=== PATIENT | male | born 2000 | race African-American/Black ===

== ENCOUNTER 2020-03-20 18:58 | Emergency (ER) | payer OTHER, SELFPAY ==
[2020-03-20] MEDS ORDERED: LIDOCAINE 1% W/EPI 1:100,000 MDV 50 ML VIAL ONE (23:11)
[2020-03-20] MEDS ORDERED: BUPIVACAINE 0.5% PF 10 ML VIAL ONE (23:11)
--- NOTE | 2020-03-21 | EDPHYS ---
Physician Documentation [facility] Name: Roel Flores Jr Age: 19 yrs Sex: Male : 2000 Arrival Date: 03/20/2020 Time: 19:00 Bed 26 Private MD: ED Physician Devante Singh HPI: 03/20 23:00 This 19 yrs old Black Male presents to ER via Ambulatory with complaints of Abscess. cp 23:00 The patient presents with an abscess of the right lower back. Description: cp erythematous, swollen, warm. Onset: The symptoms/episode began/occurred 1 week(s) ago. 23:00 Possible cause(s): unknown. cp 23:00 Associated signs and symptoms: Pertinent negatives: fever. cp Historical: - Allergies: 19:15 No Known Allergies; ss - Home Meds: 19:15 None [Active]; ss - PMHx: 19:15 None; ss - PSHx: 19:15 None; ss - Immunization history:: Adult Immunizations up to date. - Social history:: Smoking status: Patient denies any tobacco usage or history of. ROS: 23:05 Skin: Positive for abscess, cellulitis, of the right lower back. cp 23:05 Constitutional: Negative for body aches, chills, fever. cp 23:05 Cardiovascular: Negative for chest pain. 23:05 Respiratory: Negative for cough, shortness of breath, wheezing. 23:05 Abdomen/GI: Negative for abdominal pain, nausea, vomiting, and diarrhea. 23:05 All other systems are negative. Exam: 23:12 Constitutional: The patient appears in no acute distress, alert, awake, non-toxic, well cp developed, well nourished. 23:12 Head/Face: Normocephalic, atraumatic. cp 23:12 Chest/axilla: Inspection: normal. 23:12 Cardiovascular: Rate: normal. 23:12 Respiratory: the patient does not display signs of respiratory distress, Respirations: normal. 23:12 Abdomen/GI: Inspection: abdomen appears normal, Palpation: abdomen is soft and non-tender, in all quadrants. 23:12 Skin: abscess, that is moderate sized, of the right lower back, with induration, with surrounding cellulitis, that is mild. Vital Signs: 19:13 BP 127 / 77; Pulse 78; Resp 18; Temp 97.8; Pulse Ox 100% on R/A; Weight 106.59 kg; ss Height 6 ft. 0 in. (182.88 cm); Pain 6/10; 19:13 Body Mass Index 31.87 (106.59 kg, 182.88 cm) Procedures: 23:54 I \T\ D: Incision and drainage was performed for an abscess of the right lower back cp Prepped with Betadine, Anesthetized with 8 ccs of 50/50 solution 1% lidocaine with epi and 0.5% marcaine. Incised with #11 blade. Drained small amount purulent fluid. bloody fluid. Packed with iodoform gauze, Dressing: sterile 4x4 gauze, the patient tolerated the procedure well. MDM: 22:48 Patient medically screened. mook 23:00 Differential diagnosis: abscess, cellulitis, insect bite. cp 23:58 Data reviewed: vital signs, nurses notes, and as a result, I will discharge patient. 23:58 Counseling: I had a detailed discussion with the patient and/or guardian regarding: the cp historical points, exam findings, and any diagnostic results supporting the discharge/admit diagnosis, the need for outpatient follow up, a general surgeon, to return to the emergency department if symptoms worsen or persist or if there are any questions or concerns that arise at home. Response to treatment: the patient's symptoms have markedly improved after treatment, and as a result, I will discharge patient, administer antibiotics oral Doxycycline and Bactrim. 03/20 22:57 Order name: I\T\D Setup; Complete Time: 00:37 cp Administered Medications: 23:15 Drug: Lidocaine-Epinephrine -1%: (1:100,000) 10 ml Volume: 20 ml; Route: Infiltration; sg 23:15 Drug: Marcaine (0.5 %) 10 ml {Note: medication administered by Clotilde Sanders} Volume: 10 sg ml; Route: Infiltration; 03/21 00:47 Drug: Doxycycline 200 mg Route: PO; sg 00:47 Drug: Bactrim (160 mg-800 mg (DS) 2 tablet Route: PO; sg Disposition: 00:15 Chart complete. cp 06:04 Co-signature as Attending Physician, Devante Singh MD I agree with the assessment and [facility] plan of care. Disposition: 03/20/20 23:59 Discharged to Home. Impression: Cutaneous abscess of back [any part, except buttock] - right lower, Cellulitis of back [any part except buttock] - right lower. - Condition is Stable. - Discharge Instructions: Skin Abscess, Cellulitis, Adult, Incision and Drainage. - Prescriptions for Doxycycline Hyclate 100 mg Oral Tablet - take 1 tablet by ORAL route every 12 hours; 20 tablet. Bactrim DS 800- 160 mg Oral Tablet - take 1 tablet by ORAL route every 12 hours for 10 days; 20 tablet. Tramadol 50 mg Oral Tablet - take 1 tablet by ORAL route every 8 hours as needed; 12 tablet. - Medication Reconciliation Form, Thank You Letter, Antibiotic Education, Prescription Opioid Use form. - Work release form (03/21/20 00:59). sg - Follow up: Jadon Iqbal MD; When: 1 - 2 days; Reason: Wound Recheck. - Problem is new. - Symptoms have improved. Signatures: Derik Olvera RN RN sg Anderson, Corey, MD MD cha Smirch, Shelby, RN RN Devante Hitchcock PA PA cp Corrections: (The following items were deleted from the chart) 00:48 03/20 23:59 03/20/2020 23:59 Discharged to Home. Impression: Cutaneous abscess of back sg [any part, except buttock] - right lower; Cellulitis of back [any part except buttock] - right lower. Condition is Stable. Forms are Medication Reconciliation Form, Thank You Letter, Antibiotic Education, Prescription Opioid Use. Follow up: Jadon Iqbal; When: 1 - 2 days; Reason: Wound Recheck. Problem is new. Symptoms have improved. cp
--- NOTE | 2020-03-21 | ER ---
Nurse's Notes [facility] Name: Roel Flores Jr Age: 19 yrs Sex: Male : 2000 Arrival Date: 03/20/2020 Time: 19:00 Bed 26 Private MD: Diagnosis: Cutaneous abscess of back [any part, except buttock]-right lower;Cellulitis of back [any part except buttock]-right lower Presentation: 03/20 19:13 Coronavirus screen: Proceed with normal triage. Ebola Screen: Patient negative for ss fever greater than or equal to 101.5 degrees Fahrenheit, and additional compatible Ebola Virus Disease symptoms Patient denies exposure to infectious person. Patient denies travel to an Ebola-affected area in the 21 days before illness onset. No symptoms or risks identified at this time. Initial Sepsis Screen: Does the patient meet any 2 criteria? No. Patient's initial sepsis screen is negative. Does the patient have a suspected source of infection? No. Patient's initial sepsis screen is negative. Risk Assessment: Do you want to hurt yourself or someone else? Patient reports no desire to harm self or others. Onset of symptoms was March 20, 2020. Care prior to arrival: None. Transition of care: patient was not received from another setting of care. 19:13 Acuity: KELSEY 4 19:13 Method Of Arrival: Ambulatory 19:13 Chief complaint: Patient states: I have a spot on my right side lower back, my mom sg thinks its an abscess, no drainage reported. Historical: - Allergies: 19:15 No Known Allergies; - Home Meds: 19:15 None [Active]; ss - PMHx: 19:15 None; ss - PSHx: 19:15 None; ss - Immunization history:: Adult Immunizations up to date. - Social history:: Smoking status: Patient denies any tobacco usage or history of. Vital Signs: 19:13 BP 127 / 77; Pulse 78; Resp 18; Temp 97.8; Pulse Ox 100% on R/A; Weight 106.59 kg; ss Height 6 ft. 0 in. (182.88 cm); Pain 6/10; 19:13 Body Mass Index 31.87 (106.59 kg, 182.88 cm) ED Course: 19:00 Patient arrived in ED. ag5 19:15 Triage completed. ss 19:15 Arm band placed on. ss 22:41 Devante Hitchcock PA is PHCP. cp 22:41 Devante Singh MD is Attending Physician. cp 22:41 Derik Olvera, RN is Primary Nurse. sg 23:57 Jadon Iqbal MD is Referral Physician. cp Administered Medications: 23:15 Drug: Lidocaine-Epinephrine -1%: (1:100,000) 10 ml Volume: 20 ml; Route: Infiltration; sg 23:15 Drug: Marcaine (0.5 %) 10 ml {Note: medication administered by Clotilde JARA .} Volume: 10 sg ml; Route: Infiltration; 03/21 00:47 Drug: Doxycycline 200 mg Route: PO; sg 00:47 Drug: Bactrim (160 mg-800 mg (DS) 2 tablet Route: PO; sg Outcome: 03/20 23:59 Discharge ordered by . cp 03/21 00:48 Patient left the ED. sg Signatures: Derik Olvera RN RN sg Smirch, Shelby, RN RN Devante Hitchcock PA [facility] Arian Obrien ag5
[2020-03-21] MEDS ORDERED: DOXYCYCLINE 100 MG CAP PO ONE (00:51)
[2020-03-21] MEDS ORDERED: SMZ./TMP. 800/160 MG TABLET ONE (00:51)
[2020-03-21 01:10] VITALS: BP 127/77; TEMP 97.8; O2SAT 100
== END 2020-03-21 00:48 | disposition home or self-care (01) ==
LOC: ER 18:58
PROC: 0J970ZZ Drainage of Back Subcutaneous Tissue and Fascia, Open Approach (ICD-10-PCS; principal; 2020-03-21)
DX: L02.212 Cutaneous abscess of back [any part, except buttock and flank] (principal); L03.312 Cellulitis of back [any part except buttock and flank]
CPT/HCPCS: 99282

== ENCOUNTER 2021-02-06 22:18 | Emergency (ER) | payer SELFPAY ==
[2021-02-06 23:04] LABS: Absolute Lymphocytes (CBC) 1.7 K/uL (0.7-4.9); Basophils % 0.3 % (0-1.3); Hematocrit 43.9 % (39.6-49.0); Lymphocytes % 29.9 % (15.3-44.8); MPV 10.5 fL (7.6-11.3); RBC Red Blood Cell Count 5.04 M/uL (4.33-5.43)
[2021-02-06 23:17] LABS: BUN Blood Urea Nitrogen 13 mg/dL (7-18); Bicarbonate 31 mmol/L (21-32); Glucose Level 90 mg/dL (74-106); Sodium Level 142 mmol/L (136-145)
--- NOTE | 2021-02-07 00:05 | EDPHYS ---
Physician Documentation [facility] Name: Roel Flores Jr Age: 20 yrs Sex: Male : 2000 Arrival Date: 02/06/2021 Time: 22:28 Bed 14 Private MD: ED Physician Haider Padilla HPI: 02/06 22:56 This 20 yrs old Black Male presents to ER via Ambulatory with complaints of Abdominal kb Pain, Fever, Vomiting/Diarrhea. 22:56 The patient presents with abdominal pain in the left lower quadrant. Onset: The kb symptoms/episode began/occurred yesterday. The symptoms do not radiate. Associated signs and symptoms: Pertinent positives: nausea, vomiting, and diarrhea, fever. The symptoms are described as constant. Modifying factors: The symptoms are alleviated by nothing, the symptoms are aggravated by nothing. Severity of pain: At its worst the pain was moderate in the emergency department the pain is unchanged. The patient has not experienced similar symptoms in the past. The patient has not recently seen a physician. Pt reports lower abd pain that started yesterday with n/v/d and fever up to 102. Historical: - Allergies: 22:39 No Known Allergies; bb - Home Meds: 22:39 None [Active]; bb - PMHx: 22:39 None; bb - PSHx: 22:39 None; bb - Immunization history:: Adult Immunizations up to date. - Social history:: Smoking status: Patient reports the use of cigarette tobacco products, denies chronic smoking, but will smoke occasionally, Patient/guardian denies using alcohol, street drugs. ROS: 22:56 Respiratory: Negative for shortness of breath, cough, wheezing, and pleuritic chest kb pain. 22:56 Constitutional: Positive for fever. 22:56 Abdomen/GI: Positive for abdominal pain, nausea, vomiting, and diarrhea. 22:56 All other systems are negative. Exam: 22:56 Constitutional: This is a well developed, well nourished patient who is awake, alert, kb and in no acute distress. Head/Face: Normocephalic, atraumatic. ENT: Moist Mucous membranes Respiratory: Respirations even and unlabored. No increased work of breathing, no retractions or nasal flaring. Skin: Warm, dry with normal turgor. Normal color. MS/ Extremity: Pulses equal, no cyanosis. Neurovascular intact. Full, normal range of motion. Neuro: Awake and alert, GCS 15, oriented to person, place, time, and situation. Moves all extremities. Normal gait. Psych: Awake, alert, with orientation to person, place and time. Behavior, mood, and affect are within normal limits. 22:56 Abdomen/GI: Inspection: abdomen appears normal, Palpation: soft, in all quadrants, mild abdominal tenderness, in the left lower quadrant. Vital Signs: 22:35 BP 147 / 81; Pulse 81; Resp 16 S; Temp 98.6(O); Pulse Ox 99% on R/A; Weight 113.4 kg bb (R); Height 6 ft. 3 in. (190.50 cm) (R); Pain 6/10; 02/07 00:00 BP 144 / 74; Pulse 68; Resp 18; Pulse Ox 98% ; wh 01:00 BP 136 / 74; Pulse 70; Resp 18; Pulse Ox 99% on R/A; 02/06 22:35 Body Mass Index 31.25 (113.40 kg, 190.50 cm) bb MDM: 02/06 22:32 Patient medically screened. kb 22:55 Data reviewed: vital signs, nurses notes. Data interpreted: Pulse oximetry: on room air kb is 99 %. Interpretation: normal. 23:54 Counseling: I had a detailed discussion with the patient and/or guardian regarding: the kb historical points, exam findings, and any diagnostic results supporting the discharge/admit diagnosis, lab results, radiology results, the need for outpatient follow up, a family practitioner, to return to the emergency department if symptoms worsen or persist or if there are any questions or concerns that arise at home. 02/06 22:37 Order name: Basic Metabolic Panel; Complete Time: 23:22 kb 02/06 22:37 Order name: CBC with Diff; Complete Time: 23:10 kb 02/06 22:37 Order name: CT Abd/Pelvis - IV Contrast Only 02/06 22:37 Order name: IV Saline Lock; Complete Time: 22:52 kb 02/06 22:37 Order name: Labs collected and sent; Complete Time: 22:52 kb Administered Medications: 02/07 00:20 Drug: NS 0.9% 1000 ml Route: IV; Rate: 1000 ml; Site: right antecubital; 01:24 Follow up: Response: No adverse reaction; IV Status: Completed infusion 00:20 Drug: Zofran (Ondansetron) 4 mg Route: IVP; Site: right antecubital; 01:24 Follow up: Response: No adverse reaction; Nausea is decreased 00:20 Drug: Bentyl (dicyclomine) 20 mg Route: PO; 01:23 Follow up: Response: No adverse reaction; Pain is decreased Disposition: 07:40 Co-signature as Attending Physician, Haider Padilla MD. [email or web address] Disposition: 02/07/21 00:04 Discharged to Home. Impression: Nausea and vomiting, Diarrhea, unspecified, Lower abdominal pain, unspecified. - Condition is Stable. - Discharge Instructions: Food Choices to Help Relieve Diarrhea, Adult, Viral Gastroenteritis, Adult, [id number]. - Prescriptions for Bentyl 20 mg Oral Tablet - take 1 tablet by ORAL route every 6 hours As needed; 20 tablet. Zofran 4 mg Oral Tablet - take 1 tablet by ORAL route every 6 hours As needed; 20 tablet. - Medication Reconciliation Form, Thank You Letter, Antibiotic Education, Prescription Opioid Use form. - Follow up: Emergency Department; When: As needed; Reason: Worsening of condition. Follow up: Private Physician; When: 2 - 3 days; Reason: Recheck today's complaints, Continuance of care, Re-evaluation by your physician. Signatures: Dispatcher [employer] EDOR Lucia Juarez, DIANN FUNG-Eugenia Scott RN RN bb Habalo, Winsy, RN RN wh Holmes, Maurice, MD MD [email or web address] Corrections: (The following items were deleted from the chart) 01: 00:04 02/07/2021 00:04 Discharged to Home. Impression: Nausea and vomiting; Diarrhea, wh unspecified; Lower abdominal pain, unspecified. Condition is Stable. Forms are Medication Reconciliation Form, Thank You Letter, Antibiotic Education, Prescription Opioid Use. Follow up: Emergency Department; When: As needed; Reason: Worsening of condition. Follow up: Private Physician; When: 2 - 3 days; Reason: Recheck today's complaints, Continuance of care, Re-evaluation by your physician. kb
--- NOTE | 2021-02-07 00:05 | ER ---
Nurse's Notes [facility] Name: Roel Flores Jr Age: 20 yrs Sex: Male : 2000 Arrival Date: 02/06/2021 Time: 22:28 Bed 14 Private MD: Diagnosis: Nausea and vomiting;Diarrhea, unspecified;Lower abdominal pain, unspecified Presentation: 02/06 22:35 Chief complaint: Patient states: he is having sharp lower abdominal pain no radiation bb the pain is intermittent and started yesterday he also vomited x 2 yesterday, and has been having diarrhea off and on for the last couple of days with fever. Coronavirus screen: diarrhea, fever, vomiting. Ebola Screen: No symptoms or risks identified at this time. Initial Sepsis Screen: Does the patient meet any 2 criteria? No. Patient's initial sepsis screen is negative. Does the patient have a suspected source of infection? No. Patient's initial sepsis screen is negative. Risk Assessment: Do you want to hurt yourself or someone else? Patient reports no desire to harm self or others. Onset of symptoms was February 04, 2021. 22:35 Method Of Arrival: Ambulatory bb 22:35 Acuity: KELSEY 3 bb Historical: - Allergies: 22:39 No Known Allergies; bb - Home Meds: 22:39 None [Active]; bb - PMHx: 22:39 None; bb - PSHx: 22:39 None; bb - Immunization history:: Adult Immunizations up to date. - Social history:: Smoking status: Patient reports the use of cigarette tobacco products, denies chronic smoking, but will smoke occasionally, Patient/guardian denies using alcohol, street drugs. Screenin:00 Abuse screen: Denies threats or abuse. Denies injuries from another. Nutritional wh screening: No deficits noted. Tuberculosis screening: No symptoms or risk factors identified. Fall Risk None identified. Assessment: 23:45 General: Appears in no apparent distress. Behavior is calm, cooperative, appropriate wh for age. Pain: Complains of pain in abdomen Quality of pain is described as crampy. Neuro: Level of Consciousness is awake, alert, obeys commands, Oriented to person, place, time, situation, Appropriate for age. Cardiovascular: Heart tones S1 S2. Respiratory: Airway is patent Respiratory effort is even, unlabored, Respiratory pattern is regular, symmetrical, Breath sounds are clear bilaterally. GI: Bowel sounds present X 4 quads. Abd is soft and non tender X 4 quads. Reports lower abdominal pain, upper abdominal pain, nausea. : No signs and/or symptoms were reported regarding the genitourinary system. EENT: No signs and/or symptoms were reported regarding the EENT system. Derm: Skin is intact, is healthy with good turgor, Skin is pink, warm \T\ dry. normal. Musculoskeletal: Circulation, motion, and sensation intact. 02/07 00:33 Reassessment: Patient appears in no apparent distress at this time. No changes from previously documented assessment. Patient and/or family updated on plan of care and expected duration. Pain level reassessed. Patient is alert, oriented x 3, equal unlabored respirations, skin warm/dry/pink. 01:00 Reassessment: Patient appears in no apparent distress at this time. Patient and/or family updated on plan of care and expected duration. Pain level reassessed. Patient is alert, oriented x 3, equal unlabored respirations, skin warm/dry/pink. Pt with DC order awaiting for IVF to be consumed. Vital Signs: 02/06 22:35 BP 147 / 81; Pulse 81; Resp 16 S; Temp 98.6(O); Pulse Ox 99% on R/A; Weight 113.4 kg bb (R); Height 6 ft. 3 in. (190.50 cm) (R); Pain 6/10; 02/07 00:00 BP 144 / 74; Pulse 68; Resp 18; Pulse Ox 98% ; 01:00 BP 136 / 74; Pulse 70; Resp 18; Pulse Ox 99% on R/A; 02/06 22:35 Body Mass Index 31.25 (113.40 kg, 190.50 cm) ED Course: 02/06 22:28 Patient arrived in ED. cf2 22:31 Jesenia Corrales RN is Primary Nurse. wh 22:32 Lucia Juarez FNP-C is PHCP. kb 22:32 Haider Padilla MD is Attending Physician. kb 22:39 Triage completed. bb 22:39 Arm band placed on Patient placed in an exam room, on a stretcher, on pulse oximetry. bb 23:00 Patient has correct armband on for positive identification. Bed in low position. Call light in reach. Side rails up X 1. Pulse ox on. NIBP on. 23:00 Inserted saline lock: 20 gauge in right antecubital area, using aseptic technique. Blood collected. 23:07 CT Abd/Pelvis - IV Contrast Only In Process Unspecified. EDCA 02/07 01:23 No provider procedures requiring assistance completed. IV discontinued, intact, bleeding controlled, No redness/swelling at site. Administered Medications: 00:20 Drug: NS 0.9% 1000 ml Route: IV; Rate: 1000 ml; Site: right antecubital; 01:24 Follow up: Response: No adverse reaction; IV Status: Completed infusion 00:20 Drug: Zofran (Ondansetron) 4 mg Route: IVP; Site: right antecubital; 01:24 Follow up: Response: No adverse reaction; Nausea is decreased 00:20 Drug: Bentyl (dicyclomine) 20 mg Route: PO; 01:23 Follow up: Response: No adverse reaction; Pain is decreased Outcome: 00:04 Discharge ordered by . kb 01:23 Discharged to home ambulatory. 01:23 Condition: stable 01:23 Discharge instructions given to patient, Instructed on discharge instructions, follow up and referral plans. medication usage, POC Demonstrated understanding of instructions, follow-up care, medications, POC Prescriptions given X 2. 01:24 Patient left the ED. Signatures: Dispatcher [employer] EDCA Lucia Juarez, DIANN FUNG-Eugenia Scott RN RN bb Habalo, Winsy, RN RN Kemi Escudero cf2
[2021-02-07] MEDS ORDERED: NA CHLORIDE 0.9% 1,000 ML ONE (00:32)
[2021-02-07] MEDS ORDERED: ONDANSETRON 4 MG/2 ML VIAL ONE (00:32)
[2021-02-07] MEDS ORDERED: DICYCLOMINE HCL 10 MG CAP ONE (00:32)
[2021-02-07 01:31] VITALS: TEMP 98.6
[2021-02-07 01:35] VITALS: BP 136/74; O2SAT 99
--- NOTE | 2021-02-07 18:41 | RAD REPORT ---
EXAM DESCRIPTION: ABD PAIN COMPARISON: None. TECHNIQUE: CT ABDOMEN PELVIS WITH IV CONTRAST on 02/06/2021 10:37 PM CDT This exam was performed according to our departmental dose-optimization program, which includes autom ated exposure control, adjustment of the mA and/or kV according to patient size and/or use of iterati ve reconstruction technique. FINDINGS: Lower lungs are clear. Abdomen: The liver is normal in appearance. There is no biliary dilatation. Gallbladder is normal in appearance. Stomach is distended with food material. The pancreas and spleen are normal in appearance . The adrenal glands and kidneys are unremarkable. Abdominal aorta is normal in course and caliber without aneurysm. There is no free air. There is no r etroperitoneal adenopathy. Pelvis: There is no bowel obstruction. Urinary bladder is unremarkable. There is no free fluid. Appen diya is normal. Skeleton: There are no acute osseous findings. No suspicious bony lesions. IMPRESSION: No acute process. Electronically signed by: Dario Hernandez MD 02/06/2021 11:34 PM CDT Due to temporary technical issues with the PACS/Fluency reporting system, reports are being signed by the in house radiologists without review as a courtesy to insure prompt reporting. The interpreting radiologist is fully responsible for the content of the report.
== END 2021-02-07 01:24 | disposition home or self-care (01) ==
LOC: ER 22:18
DX: R11.2 Nausea with vomiting, unspecified (principal); R19.7 Diarrhea, unspecified; F17.210 Nicotine dependence, cigarettes, uncomplicated
CPT/HCPCS: 36415; 74177; 80048; 82565; 85025; 96361; 96374; 99284; J2405; J7030; Q9967

== ENCOUNTER 2021-12-23 09:58 | Emergency (ER) | payer BC, SELFPAY ==
--- NOTE | 2021-12-23 11:16 | RAD REPORT ---
EXAM DESCRIPTION: RAD - Hand Left 3 View - 12/23/2021 11:07 am CLINICAL HISTORY: LEFT thumb pain COMPARISON: No comparisons FINDINGS/IMPRESSION: No acute fracture. No malalignment. No significant focal degenerative changes.
[2021-12-23] MEDS ORDERED: KETOROLAC 30 MG/ML INJ ONE (11:46)
--- NOTE | 2021-12-23 12:20 | ER ---
Nurse's Notes [facility] Name: Roel Flores Jr Age: 21 yrs Sex: Male : 2000 Arrival Date: 12/23/2021 Time: 10:02 Bed 12 Private MD: Diagnosis: Strain of muscle and tendon of back wall of thorax;Other sprain of left thumb Presentation: 12/23 10:33 Chief complaint: Patient states: he was lifting a dresser when he felt like he pulled a ap3 muscle in his back, then dropped the dresser on his left thumb. Patient presents to the ED today with mid back pain and left thumb pain. Coronavirus screen: At this time, the client does not indicate any symptoms associated with coronavirus-19. Ebola Screen: No symptoms or risks identified at this time. Initial Sepsis Screen: Does the patient meet any 2 criteria? No. Patient's initial sepsis screen is negative. Does the patient have a suspected source of infection? No. Patient's initial sepsis screen is negative. Risk Assessment: Do you want to hurt yourself or someone else? Patient reports no desire to harm self or others. Onset of symptoms was December 23, 2021. 10:33 Method Of Arrival: Ambulatory ap3 10:33 Acuity: KELSEY 4 ap3 Triage Assessment: 10:35 General: Appears in no apparent distress. Behavior is calm, cooperative, appropriate ap3 for age. Pain: Complains of pain in mid back and left thumb Pain does not radiate. Pain currently is 5 out of 10 on a pain scale. Pain began suddenly, Is continuous. Neuro: Level of Consciousness is awake, alert, obeys commands, Oriented to person, place, time, situation, Appropriate for age Gait is steady, Speech is normal. Cardiovascular: Patient's skin is warm and dry. Respiratory: Airway is patent Respiratory effort is even, unlabored. Musculoskeletal: Reports pain in mid back area. Injury Description: dresser fell on thumb. Historical: - Allergies: 10:34 No Known Allergies; ap3 - Home Meds: 10:34 unknown weight loss pill [Active]; ap3 - PMHx: 10:34 None; ap3 - Immunization history:: Client reports having NOT received the Covid vaccine. Last tetanus immunization: unknown, Flu vaccine is not up to date. - Social history:: Smoking status: Reported history of juuling and/or vaping. Screenin:36 Abuse screen: Denies threats or abuse. Nutritional screening: No deficits noted. ap3 Tuberculosis screening: No symptoms or risk factors identified. Fall Risk None identified. Assessment: 11:30 General: Appears in no apparent distress. comfortable, Behavior is calm, cooperative. ss Pain: Complains of pain in right subscapular area and back and mid back area, L thumb Pain currently is 7 out of 10 on a pain scale. Quality of pain is described as tender, Is continuous. Neuro: Level of Consciousness is awake, alert, obeys commands, Oriented to person, place, time, situation. Respiratory: Airway is patent Respiratory effort is even, unlabored, Respiratory pattern is regular, symmetrical. Derm: Skin is intact, is healthy with good turgor, Skin is dry, Skin is pink, warm \T\ dry. normal. 11:55 Reassessment: Patient appears in no apparent distress at this time. Patient is alert, ss oriented x 3, equal unlabored respirations, skin warm/dry/pink. awaiting imaging results. Vital Signs: 10:33 BP 134 / 72; Temp 98.6; Weight 117.93 kg; Height 6 ft. 3 in. (190.50 cm); Pain 7/10; ap3 11:53 Pulse 82; Resp 16; Pulse Ox 97% on R/A; ss 10:33 Body Mass Index 32.50 (117.93 kg, 190.50 cm) ap3 ED Course: 10:02 Patient arrived in ED. ds1 10:05 Boston Carreon PA is PHCP. jmm 10:05 Devante Singh MD is Attending Physician. jmm 10:34 Triage completed. ap3 10:37 Arm band placed on right wrist. ap3 11:05 Hand Left 3 View In Process Unspecified. EDMS 11:23 Catrina Canales, GERALDINE is Primary Nurse. ss 11:54 Patient has correct armband on for positive identification. Bed in low position. Call ss light in reach. 11:54 No provider procedures requiring assistance completed. Patient did not have IV access ss during this emergency room visit. 12:32 Velcro wrist splint applied to left wrist. ss Administered Medications: 11:53 Drug: Ketorolac 30 mg Route: IM; Site: left deltoid; ss 12:32 Follow up: Response: No adverse reaction; Pain is decreased ss Outcome: 12:19 Discharge ordered by . angella 12:32 Discharged to home ambulatory. 12:32 Condition: good 12:32 Discharge instructions given to patient, Instructed on discharge instructions, follow up and referral plans. medication usage, Demonstrated understanding of instructions, follow-up care, medications, Prescriptions given X 2. 12:33 Patient left the ED. Signatures: Dispatcher [employer] EDMS Boston Carreon PA PA jmm Sanford, Demi ds1 Catrina Canales RN RN Sabrina Hall RN RN ap3
--- NOTE | 2021-12-23 12:20 | EDPHYS ---
Physician Documentation [facility] Name: Roel Flores Jr Age: 21 yrs Sex: Male : 2000 Arrival Date: 12/23/2021 Time: 10:02 Bed 12 Private MD: FAUSTINA Physician Devante Singh HPI: 12/23 10:37 This 21 yrs old Black Male presents to ER via Ambulatory with complaints of Thumb jmm Injury, Back Pain. 10:37 The patient or guardian reports injury, pain. Onset: The symptoms/episode jmm began/occurred acutely, just prior to arrival. Modifying factors: The symptoms are alleviated by nothing, the symptoms are aggravated by nothing. Associated signs and symptoms: Pertinent negatives: fever, numbness distally, tingling distally. This is a 21-year-old male with no chronic medical conditions presents emerged department with complaints of left thumb pain which occurred after a dresser fell on his hand. Patient states he also strained his back during the process. Denies other injury.. Historical: - Allergies: 10:34 No Known Allergies; ap3 - Home Meds: 10:34 unknown weight loss pill [Active]; ap3 - PMHx: 10:34 None; ap3 - Immunization history:: Client reports having NOT received the Covid vaccine. Last tetanus immunization: unknown, Flu vaccine is not up to date. - Social history:: Smoking status: Reported history of juuling and/or vaping. ROS: 10:37 Constitutional: Negative for fever, chills, and weight loss, Cardiovascular: Negative jmm for chest pain, palpitations, and edema, Respiratory: Negative for shortness of breath, cough, wheezing, and pleuritic chest pain. 10:37 Back: Positive for pain with movement. 10:37 MS/extremity: Positive for injury or acute deformity. 10:37 All other systems are negative. Exam: 10:37 Constitutional: This is a well developed, well nourished patient who is awake, alert, jmm and in no acute distress. Head/Face: atraumatic. Eyes: EOMI, no conjunctival erythema appreciated ENT: Moist Mucus Membranes Neck: Trachea midline, Supple Chest/axilla: Normal chest wall appearance and motion. Cardiovascular: Regular rate and rhythm. No edema appreciated Respiratory: Normal respirations, no respiratory distress appreciated Abdomen/GI: Non distended, soft 10:37 Back: pain, that is moderate, of the right subscapular area. 10:37 Musculoskeletal/extremity: Left IP joint of the first phalanx tender to palpation, no obvious deformity appreciated full range of motion appreciated, less than 2-second distal cap refill, compartments are soft, neurovascular intact. 10:37 Skin: Appearance: Color: normal in color. 10:37 Neuro: Orientation: is normal, Mentation: is normal, Memory: is normal. 10:37 Psych: Behavior/mood is pleasant, cooperative. Vital Signs: 10:33 BP 134 / 72; Temp 98.6; Weight 117.93 kg; Height 6 ft. 3 in. (190.50 cm); Pain 7/10; ap3 11:53 Pulse 82; Resp 16; Pulse Ox 97% on R/A; ss 10:33 Body Mass Index 32.50 (117.93 kg, 190.50 cm) ap3 MDM: 10:37 [facility] medically screened. [facility] 12:18 Data reviewed: vital signs, nurses notes. Counseling: I had a detailed discussion with angella the patient and/or guardian regarding: the historical points, exam findings, and any diagnostic results supporting the discharge/admit diagnosis, radiology results, the need for outpatient follow up, to return to the emergency department if symptoms worsen or persist or if there are any questions or concerns that arise at home. 12/23 11:05 Order name: Hand Left 3 View; Complete Time: 11:25 EDAR 12/23 11:25 Order name: Thumb Spica Splint; Complete Time: 12:32 [facility] Administered Medications: 11:53 Drug: Ketorolac 30 mg Route: IM; Site: left deltoid; ss 12:32 Follow up: Response: No adverse reaction; Pain is decreased ss Disposition Summary: 12/23/21 12:19 Discharge Ordered Location: Home bobby Condition: Stable bobby Diagnosis - Strain of muscle and tendon of back wall of thorax jmm - Other sprain of left thumb bobby Followup: angella - With: Private Physician - When: 2 - 3 days - Reason: Recheck today's complaints, Continuance of care, Re-evaluation by your physician Discharge Instructions: - Discharge Summary Sheet angella - Thumb Sprain angella - Thoracic Strain [facility] Forms: - Work release form bd - Medication Reconciliation Form [facility] - Thank You Letter jmm - Antibiotic Education jmm - Prescription Opioid Use [facility] Prescriptions: - Diclofenac Sodium 75 mg Oral Tablet Sustained Release - take 1 tablet by ORAL route 2 times per day; 30 tablet; Refills: 0, Product [facility] Selection Permitted - orphenadrine citrate 100 mg Oral Tablet Sustained Release - take 1 tablet by ORAL route 2 times per day As needed; 20 tablet; Refills: 0, [facility] Product Selection Permitted Addendum: 12/25/2021 18:40 Co-signature as Attending Physician, Devante Singh MD I agree with the assessment and c [place] plan of care. Signatures: Dispatcher [employer] Devante Porter MD MD cha Mickail, Joel, PA PA jmm Smirch, Shelby, RN RN ss Sabrina Hall RN RN ap3 Corrections: (The following items were deleted from the chart) 12/23 11:05 10:41 Hand Right 3 View ordered. [facility]
[2021-12-23 17:42] VITALS: BP 134/72; TEMP 98.6
[2021-12-23 17:43] VITALS: O2SAT 97
== END 2021-12-23 12:33 | disposition home or self-care (01) ==
LOC: ER 09:58
DX: S29.012A Strain of muscle and tendon of back wall of thorax, initial encounter (principal); S63.682A Other sprain of left thumb, initial encounter; W22.8XXA Striking against or struck by other objects, initial encounter
CPT/HCPCS: 96372; 99284